=== PATIENT | male | born 1990 | race African-American/Black ===

== ENCOUNTER 2017-01-30 19:30 | Emergency (ER) | payer MEDICAID ==
[~2017-01-30] VITALS: Ht 167.6 cm; Wt 63.0 kg
[~2017-01-30 19:30] MED LIST: ALBUTEROL
[2017-01-30] MEDS ORDERED: AZITHROMYCIN 500 MG TABLET PO STA (19:51)
[2017-01-30] MEDS ORDERED: IPRATROPIUM BROMIDE (0.02%) 0.5MG/2.5ML NEB HHN STA (19:51)
[2017-01-30] MEDS ORDERED: ALBUTEROL (0.083%) 2.5MG/3ML NEB HHN STA (19:51)
[2017-01-30] MEDS ORDERED: PREDNISONE 20MG TABLET PO STA (19:51)
[2017-01-30] MEDS ORDERED: ALBUTEROL (0.5%) 2.5MG/0.5ML NEB HHN ONE (20:50)
[2017-01-30 21:50] VITALS: BP 129/73
[2017-01-30] MEDS ORDERED: ONDANSETRON HCL 4MG/2ML VIAL IV STA (22:26)
== END 2017-01-30 23:12 | disposition home or self-care (01) ==
LOC: ER 21:43
DX: J45.901 Unspecified asthma with (acute) exacerbation (principal); M79.643 Pain in unspecified hand; F12.10 Cannabis abuse, uncomplicated; Z91.14 Patient's other noncompliance with medication regimen
CPT/HCPCS: 71010; 94640; 96374; 99284; J2405; J7512; J7611

== ENCOUNTER 2018-04-26 00:05 | Emergency (ER) | payer MEDICAID ==
[~2018-04-26] VITALS: Ht 175.3 cm; Wt 72.0 kg
[2018-04-26 07:30] VITALS: BP 122/78
== END 2018-04-26 09:40 | disposition home or self-care (01) ==
LOC: ER 00:05
DX: J40 Bronchitis, not specified as acute or chronic (principal); F17.200 Nicotine dependence, unspecified, uncomplicated
CPT/HCPCS: 71045; 87804; 99284

== ENCOUNTER 2019-03-15 05:50 | Emergency (ER) | payer MEDICAID ==
[~2019-03-15] VITALS: Ht 182.9 cm; Wt 73.0 kg
[2019-03-15] MEDS ORDERED: FOLIC ACID 1 MG, THIAMINE HCL 100 MG, MVI, ADULT NO.1 10 ML in DEXTROSE 5% WATER 1,000 ML IV ONE ×4 (06:15)
[2019-03-15] MEDS ORDERED: ONDANSETRON HCL 4MG/2ML INJ IV ONE (06:15)
[2019-03-15] MEDS ORDERED: LORAZEPAM 2MG/ML CPJ IV ONE (06:30)
[2019-03-15 06:33] LABS: BASOPHILS % 0.4 % (0.0-2.0); EOSINOPHILS % 0.9 % (0.0-5.0); HEMATOCRIT. 41.8 % (42.0-52.0); HEMOGLOBIN. 14.2 g/dL (14.0-18.0); LYMPHOCYTES % 10.9 % (20.0-50.0); MEAN CORPUSCULAR HEMOGLOBIN 29.1 pg (28.0-32.0); MEAN CORPUSCULAR VOLUME 85.6 fL (80.0-94.0); MEAN PLATELET VOLUME 6.5 fl (7.4-10.4); MONOCYTES % 4.9 % (2.0-8.0); NEUTROPHILS % 82.9 % (40.0-76.0); PLATELET 334 x1000/uL (130-400); RED BLOOD CELL COUNT 4.89 mill/uL (4.7-6.1); RED CELL DISTRIBUTION WIDTH 13.9 % (11.6-14.6)
[2019-03-15 06:39] LABS: CHLORIDE 106 mEq/L (98-107)
[2019-03-15 06:44] LABS: ETHANOL BLOOD 18 mg/dL
[2019-03-15 07:23] LABS: CLARITY URINE CLEAR (CLEAR); COLOR URINE YELLOW (YELLOW); KETONES URINE 1+ (NEGATIVE); LEUKOCYTE ESTERASE URINE NEGATIVE (NEGATIVE); NITRITE URINE NEGATIVE (NEGATIVE); OCCULT BLOOD URINE NEGATIVE (NEGATIVE); PH URINE 5.5 (4.5-8.0); PROTEIN URINE NEGATIVE (NEGATIVE); SPECIFIC GRAVITY URINE 1.019 (1.005-1.030); UROBILINOGEN URINE 0.2 E.U./dL (0.2-1.0)
[2019-03-15 07:39] VITALS: BP 113/62
[2019-03-15 07:48] LABS: *AMPHETAMINES SCREEN URINE PRESUMTIVE POSITIVE (NEGATIVE); *BARBITURATES SCREEN URINE NEGATIVE (NEGATIVE); *BENZODIAZEPINES SCREEN URINE NEGATIVE (NEGATIVE); *COCAINE SCREEN URINE NEGATIVE (NEGATIVE)
[2019-03-15 07:49] LABS: CANNABINOID URINE SCREEN PRESUMTIVE POSITIVE (NEGATIVE); METHADONE URINE SCREEN NEGATIVE (NEGATIVE); OPIATES URINE SCREEN NEGATIVE (NEGATIVE); PHENCYCLIDINE URINE SCREEN NEGATIVE (NEGATIVE)
== END 2019-03-15 09:14 | disposition home or self-care (01) ==
LOC: ER 06:39
DX: R07.89 Other chest pain (principal); F15.10 Other stimulant abuse, uncomplicated; J45.909 Unspecified asthma, uncomplicated; F12.10 Cannabis abuse, uncomplicated; F17.200 Nicotine dependence, unspecified, uncomplicated
CPT/HCPCS: 36415; 71045; 80053; 80305; 80307; 80320; 80329; 81003; 82962; 85025; 93005; 96365; 96375; 99284; J2060; J2405; J3411; J3490; J7070; G0480